=== PATIENT | female | born 1985 | race Caucasian/White ===

== ENCOUNTER 2016-10-25 16:45 | Emergency (ER) | payer OTHER ==
[~2016-10-25] VITALS: Ht 160 cm; Wt 92.0 kg
[~2016-10-25 16:45] MED LIST: ALBUTEROL17 GM IH; ALPRAZOLAM2 MG PO; ARTIFICIAL TEAR1510 BOTH EYES; ATROVENT 00.5 MG/2.5 IH; AUGMENTIN875 MG PO; AVELOX400 MG PO; BACTRIM,SEPT1 TABLET PO; BUTALB-APAP-CA1 EACH PO; CIPRO500 MG PO; CITRATE OF MAG296 ML PO; CLEOCIN300 MG PO; COMBIVENT RESPIM4 GM IH; DULERA 200 MCG/13 GM IH; DUONEB 2.5-0.5 M3 ML AEROSOL; FIORICET,ESG1 TABLET PO; FLAGYL500 MG PO; FLONASE16 G1 BOTH NARES; FLOVENT 22120 INHALA IH; HYDROCODON-ACE1 EAC7 PO; IMITREX25 MG PO; KEFLEX500 MG PO; LEVOFLOXACIN500 MG PO; MOBIC15 MG PO; MONTELUKAST SOD10 MG PO; MUCINEX D ER T1 EACH PO; Motrin PO; NAPROSYN500 MG PO; NICOTINE PATCH1 EAC1 TD; NO HOME MEDS; NOHOMEMEDS; NORCO 5/3251 TABLET PO; ONE DAILY FOR1 EAC1 PO; OXCARBAZEPINE300 MG PO; OXYCODONE HCL5 MG PO; PERCOCET 5/31 TABLET PO; PHENERGAN-CODE120 ML PO; PREDNISONE; PREDNISONE10 MG PO; PREDNISONE20 MG PO; PRENATAL VITAM1 EAC3 PO; PROAIR HFA8.5 GM IH; PROVENTIL HFA6.7 GM IH; PROVENTIL,2.5 MG/3 M IH; PSEUDOEPHEDRINE30 MG PO; PULMICORT0.5 MG/21 IH; Proventil,Ventolin H IH; REGLAN10 MG PO; SAPHRIS10 MG SL; SEROQUEL100 MG PO; SERTRALINE HCL50 MG PO; Symbicort 160-4.5 mc IH; TAMIFLU75 MG PO; TESSALON PERLE100 MG PO; TRAMADOL HCL50 MG PO; TRILEPTAL150 MG PO; Tylenol/Codeine #3 PO; ULTRAM50 MG PO; VENTOLIN HFA18 GM IH; VICODIN 5-3001 EACH PO; VYVANSE30 MG PO; XANAX2 MG PO; ZITHROMAX Z-PA250 MG PO; ZOFRAN4 MG PO; ZOLOFT25 MG PO; ZOLOFT50 MG PO; Zithromax PO; predniSONE PO
[2016-10-25 17:15] LABS: HEMATOCRIT 43.4 % (36.0-46.0); MCH 29.3 PG (29.0-34.0); MCHC 33.6 G/DL (30.0-36.0); MCV 87.1 FL (83-99); MEAN PLAT.VOLUME 9.6 uM^3 (9.5-12.4); PLATELET COUNT 295 K/uL (156-360); RBC DIS.WIDTH-CV 12.3 % (11.8-14.6); RBC DIS.WIDTH-SD 39.3 % (39-53); RED BLOOD COUNT 4.98 M/uL (3.80-5.20); WHITE BLOOD COUNT 9.6 K/uL (4.1-10.2)
[2016-10-25 17:23] LABS: CHLORIDE 107 mEq/L (99-109); POTASSIUM 3.7 mEq/L (3.7-5.4); SODIUM 141 mEq/L (136-147)
[2016-10-25 17:25] LABS: GLUCOSE 98 mg/dL (70-99)
[2016-10-25 17:26] LABS: ANION GAP 11 MEQ/L (2-14)
[2016-10-25 17:35] LABS: GFR ESTIMATE (CALCULATED) > 59 mL/min/; UREA NITROGEN (BUN) 9 mg/dL (9-23)
[2016-10-25 17:44] LABS: D-DIMER ELISA 0.79 mg/L FEU (< 0.57)
[2016-10-25] MEDS ORDERED: METHYLPREDNISOLO4 M1 PO (19:38)
[2016-10-25] MEDS ORDERED: ALBUTEROL2.5 MG/3 M IH (19:38)
[2016-10-25] MEDS ORDERED: ENDOCET 5-3251 EACH PO (19:38)
[2016-10-25] MEDS ORDERED: ALPRAZOLAM2 MG PO (19:39)
[2016-10-25] MEDS ORDERED: ULTRAM50 MG PO (20:29)
[2016-10-25] MEDS ORDERED: NAPROSYN500 MG PO (20:29)
[2016-10-25 20:48] VITALS: BP 103/66
== END 2016-10-25 20:49 | disposition home or self-care (01) ==
LOC: EME 16:45
PROVIDERS: Physician Assistant
DX: R09.1 Pleurisy (principal); R07.9 Chest pain, unspecified; J06.9 Acute upper respiratory infection, unspecified; R79.1 Abnormal coagulation profile; J44.9 Chronic obstructive pulmonary disease, unspecified; J45.909 Unspecified asthma, uncomplicated; F17.200 Nicotine dependence, unspecified, uncomplicated
CPT/HCPCS: 71020; 71275; 80048; 85027; 85379; 93005; 99281; 99285

== ENCOUNTER 2017-02-16 03:15 | Emergency (ER) | payer OTHER ==
[~2017-02-16] VITALS: Ht 165.1 cm; Wt 86.9 kg
[~2017-02-16 03:15] MED LIST changes: +ALBUTEROL2.5 MG/3 M IH; +ENDOCET 5-3251 EACH PO; +METHYLPREDNISOLO4 M1 PO
[2017-02-16 04:44] LABS: HEMATOCRIT 45.7 % (36.0-46.0); MCH 29.2 PG (29.0-34.0); MCHC 33.3 G/DL (30.0-36.0); MCV 87.9 FL (83-99); RBC DIS.WIDTH-CV 12.8 % (11.8-14.6); RBC DIS.WIDTH-SD 41.7 % (39-53)
[2017-02-16 04:54] LABS: CHLORIDE 107 mEq/L (99-109); POTASSIUM 3.3 mEq/L (3.7-5.4); SODIUM 140 mEq/L (136-147)
[2017-02-16 04:56] LABS: GLUCOSE 127 mg/dL (70-99)
[2017-02-16 04:57] LABS: ANION GAP 12 MEQ/L (2-14)
[2017-02-16 04:58] LABS: TOTAL BILIRUBIN 0.2 mg/dL (0.0-1.0)
[2017-02-16 04:59] LABS: SERUM ETHYL ALCOHOL 204 mg/dL
[2017-02-16 05:00] LABS: ALKALINE PHOSPHATASE 70 IU/L (3-129); GFR ESTIMATE (CALCULATED) > 59 mL/min/
[2017-02-16 05:01] LABS: UREA NITROGEN (BUN) 6 mg/dL (9-23)
[2017-02-16 05:22] LABS: HEMATOLOGY COMMENT 1 SN; PLAT.SUFFICIENCY ADEQUATE; PLATELET COUNT UNABLE TO REPORT K/uL (156-360)
[2017-02-16 05:30] VITALS: BP 114/79
== END 2017-02-16 06:00 | disposition home or self-care (01) ==
LOC: EME 03:15
PROVIDERS: Emergency Medicine
DX: F10.129 Alcohol abuse with intoxication, unspecified (principal); Y90.7 Blood alcohol level of 200-239 mg/100 ml; J44.9 Chronic obstructive pulmonary disease, unspecified; F17.200 Nicotine dependence, unspecified, uncomplicated; Z88.0 Allergy status to penicillin
CPT/HCPCS: 80053; 81003; 85027; 99281; 99285; G0480; J2405

== ENCOUNTER 2017-03-01 13:26 | Inpatient (IN) | payer OTHER ==
[~2017-03-01] VITALS: Ht 160 cm; Wt 86.3 kg
[2017-03-01 14:17] LABS: HEMATOCRIT 43.9 % (36.0-46.0); MCH 29.8 PG (29.0-34.0); MCHC 33.9 G/DL (30.0-36.0); MCV 87.8 FL (83-99); RBC DIS.WIDTH-SD 41.6 % (39-53); WHITE BLOOD COUNT 10.7 K/uL (4.1-10.2)
[2017-03-01 14:29] LABS: D-DIMER ELISA 1.55 mg/L FEU (< 0.57)
[2017-03-01 14:32] LABS: CHLORIDE 109 mEq/L (99-109); POTASSIUM 3.9 mEq/L (3.7-5.4); SODIUM 139 mEq/L (136-147)
[2017-03-01 14:34] LABS: GLUCOSE 87 mg/dL (70-99)
[2017-03-01 14:35] LABS: ANION GAP 11 MEQ/L (2-14)
[2017-03-01 14:38] LABS: GFR ESTIMATE (CALCULATED) > 59 mL/min/; UREA NITROGEN (BUN) 5 mg/dL (9-23)
[2017-03-01 14:46] LABS: QUANTITATIVE HCG < 4.0 MIU/ML
[2017-03-01 16:51] LABS: TROP-I INTERPRETATION NEGATIVE; TROPONIN-I < 0.01 ng/mL (0.0-0.30)
[2017-03-01 17:27] LABS: PROTHROMBIN TIME 10.3 (9.2-11.2); PTT 26.9 (25-32)
[2017-03-01 17:57] LABS: MEAN PLAT.VOLUME 10.2 uM^3 (9.5-12.4); PLAT.SUFFICIENCY ADEQUATE; PLATELET COUNT 213 K/uL (156-360)
[2017-03-01 19:50] VITALS: BP 120/70
[2017-03-02 00:23] VITALS: BP 133/67
[2017-03-02 01:03] LABS: PROTHROMBIN TIME 10.4 (9.2-11.2); TROP-I INTERPRETATION NEGATIVE; TROPONIN-I < 0.01 ng/mL (0.0-0.30)
[2017-03-02 01:21] LABS: PTT 75.1 (25-32)
[2017-03-02 04:17] VITALS: BP 112/69
[2017-03-02 06:46] LABS: HEMATOCRIT 37.4 % (36.0-46.0); MCH 30.6 PG (29.0-34.0); MCHC 33.4 G/DL (30.0-36.0); MCV 91.7 FL (83-99); MEAN PLAT.VOLUME 10.9 uM^3 (9.5-12.4); PLATELET COUNT 165 K/uL (156-360); RBC DIS.WIDTH-CV 13.2 % (11.8-14.6); RBC DIS.WIDTH-SD 44.5 % (39-53); RED BLOOD COUNT 4.08 M/uL (3.80-5.20); WHITE BLOOD COUNT 8.1 K/uL (4.1-10.2)
[2017-03-02 07:11] LABS: ALKALINE PHOSPHATASE 54 IU/L (3-129); ANION GAP 4 MEQ/L (2-14); CHLORIDE 111 MEQ/L (99-109); GFR ESTIMATE (CALCULATED) > 59 mL/min/; GLUCOSE 87 mg/dL (70-99); POTASSIUM 3.8 MEQ/L (3.7-5.4); SAMPLE HEMOLYSIS CHECK 0; SAMPLE ICTERIC CHECK 0; SAMPLE LIPEMIA CHECK 0; SODIUM 139 MEQ/L (136-147); TOTAL BILIRUBIN 0.3 MG/DL (0.0-1.0); UREA NITROGEN (BUN) 6 mg/dL (9-23)
[2017-03-02 07:26] LABS: TROP-I INTERPRETATION NEGATIVE; TROPONIN-I < 0.01 ng/mL (0.0-0.30)
[2017-03-02 08:17] VITALS: BP 105/60
[2017-03-02 12:11] VITALS: BP 103/53
[2017-03-02 14:37] LABS: ADD MIUA? YES; BILIRUBIN NEGATIVE; BLOOD MODERATE; COLOR STRAW ((YELLOW)); GLUCOSE (STRIP) NEGATIVE; KETONES NEGATIVE; LEUKOCYTES SMALL; NITRITE NEGATIVE; PROTEIN (STRIP) NEGATIVE; SPECIFIC GRAVITY 1.008 (1.000-1.030); UROBILINOGEN 0.2 MG/DL (0.2-1.0)
[2017-03-02 14:41] VITALS: BP 123/73
[2017-03-02 14:41] LABS: BACTERIA RARE /HPF; EPITHELIAL CELLS 1+ /HPF; MUCUS TRACE /LPF; RED BLOOD CELLS 0-5 /HPF (0-5); UCUL ADDED? NO; WHITE BLOOD CELLS 0-5 /HPF (0-5)
[2017-03-02 15:05] LABS: AMPHETAMINES QUANT VALUE 0 NG/ML; BARBITUATES QUANT VALUE 0 NG/ML; BENZODIAZEPINES QUANT VALUE 0 NG/ML; BENZODIAZEPINES, URINE SCREEN Negative (200 ng/mL); MARIJUANA QUANT VALUE 0 NG/ML; PHENCYCLIDINE QUANT VALUE 0 NG/ML
[2017-03-02 20:06] VITALS: BP 108/55
[2017-03-03] VITALS: BP 108/59
[2017-03-03 04:31] VITALS: BP 124/62
[2017-03-03 09:49] VITALS: BP 115/71
[2017-03-03 11:27] VITALS: BP 108/65
[2017-03-03] MEDS ORDERED: XARELTO15 MG PO (11:32)
[2017-03-03] MEDS ORDERED: XARELTO20 MG PO (11:32)
[2017-03-06 15:33] LABS: DRVVT Mixing Study Interp Not Indicated (()); PROTEIN C FUNCTIONAL ACTIVITY+ 108 % (70-180); PTT-LA 40 sec (<=40); Protein S, Free 86 % normal (50-147); Thrombosis Consult Level Limited (()); dRVVT Screen 39 sec (<=45)
[2017-03-06 16:55] LABS: ANTITHROMBIN III ACTIVITY+ 93 % activi (80-120)
== END 2017-03-03 12:24 | disposition home or self-care (01) | DRG 176 ==
LOC: EME 13:26 → EDOF 17:03 → 5SOUTH 19:14
PROVIDERS: Hospitalist; Internal Medicine; Nurse Practitioner Family
DX: I26.99 Other pulmonary embolism without acute cor pulmonale (principal); R09.02 Hypoxemia; G89.29 Other chronic pain; J45.909 Unspecified asthma, uncomplicated; F17.210 Nicotine dependence, cigarettes, uncomplicated; Z68.33 Body mass index [BMI] 33.0-33.9, adult; Z79.899 Other long term (current) drug therapy
CPT/HCPCS: 71020; 71275; 80048; 80053; 80306 90; 81003; 81240 90; 83090 90; 83880; 84484; 84702; 85027; 85240 90; 85300 90; 85303 90; 85305 90; 85306 90; 85307 90; 85379; 85610; 85613 90; 85730; 85730 90; 86146 90; 86147 90; 93005; 93970; 94640; 94640 76; 99281; 99285; J1170; J1885; J2270; J7030; S0028

== ENCOUNTER 2017-03-15 17:21 | Emergency (ER) | payer OTHER ==
[~2017-03-15] VITALS: Ht 160 cm; Wt 86.0 kg
[~2017-03-15 17:21] MED LIST changes: +XARELTO15 MG PO; +XARELTO20 MG PO
[2017-03-15 19:08] LABS: EOSINOPHIL (%) 3.8 % (0-5); EOSINOPHIL COUNT 0.3 K/uL (0-0.3); HEMATOCRIT 43.4 % (36.0-46.0); IMMATURE GRANULOCYTE (%) 0.6 % (0.0-0.7); INSTRUMENT ABS NEUTROPHIL CT 4.5 K/uL; LYMPHOCYTE COUNT 1.6 K/uL (1.0-2.8); MCH 28.9 PG (29.0-34.0); MCHC 32.9 G/DL (30.0-36.0); MEAN PLAT.VOLUME 9.8 uM^3 (9.5-12.4); MONOCYTE (%) 10.3 % (3-12); MONOCYTE COUNT 0.7 K/uL (0-0.8); NEUTROPHIL (%) 62.1 % (45-76); NEUTROPHIL COUNT 4.5 K/uL (1.8-6.4); RBC DIS.WIDTH-CV 12.8 % (11.8-14.6); RBC DIS.WIDTH-SD 41.1 % (39-53); WHITE BLOOD COUNT 7.2 K/uL (4.1-10.2)
[2017-03-15 19:09] LABS: MCV 87.7 FL (83-99); PLATELET COUNT 314 K/uL (156-360); RED BLOOD COUNT 4.95 M/uL (3.80-5.20)
[2017-03-15 19:12] LABS: INTER. NORMALIZED RATIO 2.1; PROTHROMBIN TIME 23.5 SEC (10.2-12.9)
[2017-03-15 19:21] LABS: PTT 37.1 SEC (25-37)
[2017-03-15 19:23] LABS: CHLORIDE 108 mEq/L (99-109); POTASSIUM 4.1 mEq/L (3.7-5.4); SODIUM 139 mEq/L (136-147)
[2017-03-15 19:24] LABS: GLUCOSE 97 mg/dL (70-99)
[2017-03-15 19:26] LABS: ANION GAP 8 MEQ/L (2-14)
[2017-03-15 19:28] LABS: GFR ESTIMATE (CALCULATED) > 59 mL/min/
[2017-03-15 19:29] LABS: UREA NITROGEN (BUN) 8 mg/dL (9-23)
[2017-03-15 19:30] LABS: TROP-I INTERPRETATION NEGATIVE; TROPONIN-I < 0.01 ng/mL (0.0-0.30)
[2017-03-15 21:55] VITALS: BP 101/55
== END 2017-03-15 21:59 | disposition home or self-care (01) ==
LOC: EME 17:21
PROVIDERS: Emergency Medicine
DX: J44.9 Chronic obstructive pulmonary disease, unspecified (principal); I26.99 Other pulmonary embolism without acute cor pulmonale; R42 Dizziness and giddiness; Z91.81 History of falling; F41.9 Anxiety disorder, unspecified; F17.200 Nicotine dependence, unspecified, uncomplicated; Z88.0 Allergy status to penicillin
CPT/HCPCS: 71020; 71275; 80048; 84484; 85025; 85610; 85730; 94640; 99281; 99285; J1100; J1885; J2405; J3475

== ENCOUNTER 2017-07-04 09:53 | Day surgery (SDC) | payer OTHER ==
[~2017-07-04] VITALS: Ht 160 cm; Wt 86.0 kg
[~2017-07-04 09:53] MED LIST changes: +BREO ELLIPTA I1 EACH IH
[2017-07-04 10:34] LABS: EOSINOPHIL COUNT 0.4 K/uL (0-0.3); HEMATOCRIT 42.4 % (36.0-46.0); IMMATURE GRANULOCYTE (%) 0.4 % (0.0-0.7); INSTRUMENT ABS NEUTROPHIL CT 4.6 K/uL; LYMPHOCYTE COUNT 1.4 K/uL (1.0-2.8); MCH 30.2 PG (29.0-34.0); MCHC 33.7 G/DL (30.0-36.0); MCV 89.6 FL (83-99); MEAN PLAT.VOLUME 10.1 uM^3 (9.5-12.4); MONOCYTE (%) 9.6 % (3-12); MONOCYTE COUNT 0.7 K/uL (0-0.8); NEUTROPHIL (%) 64.8 % (45-76); NEUTROPHIL COUNT 4.6 K/uL (1.8-6.4); PLATELET COUNT 225 K/uL (156-360); RBC DIS.WIDTH-CV 12.9 % (11.8-14.6); RBC DIS.WIDTH-SD 42.4 % (39-53); RED BLOOD COUNT 4.73 M/uL (3.80-5.20); WHITE BLOOD COUNT 7.1 K/uL (4.1-10.2)
[2017-07-04 10:52] VITALS: BP 116/61
[2017-07-04 11:01] LABS: PROTHROMBIN TIME 11.4 SEC (10.2-12.9)
[2017-07-04 11:03] LABS: PTT 25.2 SEC (25-37)
[2017-07-04] MEDS ORDERED: MOTRIN800 MG PO (13:07)
[2017-07-04 15:12] VITALS: BP 103/53
[2017-07-04 16:16] VITALS: BP 99/58
== END 2017-07-04 16:38 | disposition home or self-care (01) ==
LOC: SDC 09:53
PROVIDERS: Obstetrics & Gynecology
DX: D06.9 Carcinoma in situ of cervix, unspecified (principal); N93.9 Abnormal uterine and vaginal bleeding, unspecified; N92.0 Excessive and frequent menstruation with regular cycle; F41.1 Generalized anxiety disorder; J44.9 Chronic obstructive pulmonary disease, unspecified; J45.41 Moderate persistent asthma with (acute) exacerbation; E66.3 Overweight; Z68.36 Body mass index [BMI] 36.0-36.9, adult; Z86.711 Personal history of pulmonary embolism; Z79.01 Long term (current) use of anticoagulants; F17.210 Nicotine dependence, cigarettes, uncomplicated
CPT/HCPCS: 84702; 85025; 85610; 85730; 86850; 86900; 86901; 88305; 88342 TC; 93005; 94640; J1170; J1644; J1885; J2250; J2405; J3010

== ENCOUNTER 2017-07-10 17:13 | Emergency (ER) | payer OTHER ==
[~2017-07-10] VITALS: Ht 160 cm; Wt 90.9 kg
[~2017-07-10 17:13] MED LIST changes: +MOTRIN800 MG PO
[2017-07-10 17:42] LABS: EOSINOPHIL (%) 0 % (0-5); HEMATOCRIT 46.4 % (36.0-46.0); IMMATURE GRANULOCYTE (%) 0.4 % (0.0-0.7); INSTRUMENT ABS NEUTROPHIL CT 9.6 K/uL; LYMPHOCYTE COUNT 0.5 K/uL (1.0-2.8); MCH 29.4 PG (29.0-34.0); MCHC 33.4 G/DL (30.0-36.0); MEAN PLAT.VOLUME 9.9 uM^3 (9.5-12.4); MONOCYTE (%) 1.2 % (3-12); MONOCYTE COUNT 0.1 K/uL (0-0.8); NEUTROPHIL (%) 93.2 % (45-76); NEUTROPHIL COUNT 9.6 K/uL (1.8-6.4); PLATELET COUNT 277 K/uL (156-360); RBC DIS.WIDTH-CV 13.2 % (11.8-14.6); RBC DIS.WIDTH-SD 42.5 % (39-53); RED BLOOD COUNT 5.27 M/uL (3.80-5.20); WHITE BLOOD COUNT 10.3 K/uL (4.1-10.2)
[2017-07-10 17:49] LABS: PROTHROMBIN TIME 11.5 SEC (10.2-12.9)
[2017-07-10 17:51] LABS: CHLORIDE 108 mEq/L (99-109); POTASSIUM 3.5 mEq/L (3.7-5.4); PTT 24.5 SEC (25-37); SODIUM 138 mEq/L (136-147)
[2017-07-10 17:53] LABS: GLUCOSE 168 mg/dL (70-99)
[2017-07-10 17:55] LABS: ANION GAP 14 MEQ/L (2-14)
[2017-07-10 17:57] LABS: GFR ESTIMATE (CALCULATED) > 59 mL/min/
[2017-07-10 17:58] LABS: UREA NITROGEN (BUN) 11 mg/dL (9-23)
[2017-07-10 18:10] LABS: QUANTITATIVE HCG < 4.0 MIU/ML
[2017-07-10 20:21] VITALS: BP 121/68
== END 2017-07-10 20:25 | disposition home or self-care (01) ==
LOC: EME 17:13
PROVIDERS: Physician Assistant
DX: J45.901 Unspecified asthma with (acute) exacerbation (principal); J44.9 Chronic obstructive pulmonary disease, unspecified; Z98.890 Other specified postprocedural states; I27.82 Chronic pulmonary embolism; F17.200 Nicotine dependence, unspecified, uncomplicated; Z88.0 Allergy status to penicillin
CPT/HCPCS: 71275; 80048; 81003; 84702; 85025; 85610; 85730; 94640; 99281; 99285; J2060; J2930; J7030

== ENCOUNTER 2017-07-13 18:03 | Emergency (ER) | payer OTHER ==
[~2017-07-13] VITALS: Ht 172.7 cm; Wt 97.0 kg
[2017-07-13 18:22] VITALS: BP 106/78
== END 2017-07-13 18:44 | disposition left against medical advice (07) ==
LOC: EME 18:03
DX: R06.02 Shortness of breath (principal); Z53.21 Procedure and treatment not carried out due to patient leaving prior to being seen by health care provider

== ENCOUNTER 2017-07-20 21:23 | Emergency (ER) | payer OTHER ==
[~2017-07-20] VITALS: Ht 160 cm; Wt 94.8 kg
[2017-07-20 23:01] LABS: MCH 30.2 PG (29.0-34.0); MCHC 34.4 G/DL (30.0-36.0); MCV 87.8 FL (83-99); MEAN PLAT.VOLUME 9.6 uM^3 (9.5-12.4); PLATELET COUNT 253 K/uL (156-360); RBC DIS.WIDTH-CV 12.6 % (11.8-14.6); RBC DIS.WIDTH-SD 40.2 % (39-53); RED BLOOD COUNT 4.67 M/uL (3.80-5.20); WHITE BLOOD COUNT 11.8 K/uL (4.1-10.2)
[2017-07-20 23:15] LABS: CHLORIDE 106 mEq/L (99-109); POTASSIUM 3.5 mEq/L (3.7-5.4); SODIUM 138 mEq/L (136-147)
[2017-07-20 23:17] LABS: GLUCOSE 122 mg/dL (70-99)
[2017-07-20 23:18] LABS: ANION GAP 8 MEQ/L (2-14)
[2017-07-20 23:19] LABS: TOTAL BILIRUBIN 0.2 mg/dL (0.0-1.0)
[2017-07-20 23:20] LABS: ALKALINE PHOSPHATASE 62 IU/L (3-129)
[2017-07-20 23:21] LABS: GFR ESTIMATE (CALCULATED) > 59 mL/min/
[2017-07-20 23:22] LABS: UREA NITROGEN (BUN) 7 mg/dL (9-23)
[2017-07-20 23:35] LABS: QUANTITATIVE HCG < 4.0 MIU/ML
[2017-07-21] MEDS ORDERED: HYCODAN SYRUP480 ML PO (01:08)
[2017-07-21 01:32] VITALS: BP 121/86
== END 2017-07-21 01:34 | disposition home or self-care (01) ==
LOC: EME 21:23
PROVIDERS: Physician Assistant
DX: J06.9 Acute upper respiratory infection, unspecified (principal); J44.0 Chronic obstructive pulmonary disease with (acute) lower respiratory infection; J20.9 Acute bronchitis, unspecified; R07.81 Pleurodynia; Z86.711 Personal history of pulmonary embolism; Z88.0 Allergy status to penicillin; F17.200 Nicotine dependence, unspecified, uncomplicated
CPT/HCPCS: 71275; 80053; 84702; 85027; 94640; 99281; 99285; J2270; J2405; J7030

== ENCOUNTER 2017-08-19 15:06 | Emergency (ER) | payer OTHER ==
[~2017-08-19] VITALS: Ht 160 cm; Wt 93.4 kg
[~2017-08-19 15:06] MED LIST changes: +HYCODAN SYRUP480 ML PO
[2017-08-19 16:28] LABS: HEMATOCRIT 43.7 % (36.0-46.0); MCH 29.9 PG (29.0-34.0); MCHC 34.3 G/DL (30.0-36.0); MCV 87.2 FL (83-99); PLATELET COUNT 259 K/uL (156-360); RBC DIS.WIDTH-CV 13.1 % (11.8-14.6); RBC DIS.WIDTH-SD 41.7 % (39-53); RED BLOOD COUNT 5.01 M/uL (3.80-5.20); WHITE BLOOD COUNT 9.9 K/uL (4.1-10.2)
[2017-08-19 16:46] LABS: CHLORIDE 108 mEq/L (99-109); POTASSIUM 3.7 mEq/L (3.7-5.4); SODIUM 138 mEq/L (136-147)
[2017-08-19 16:48] LABS: GLUCOSE 113 mg/dL (70-99)
[2017-08-19 16:52] LABS: CREATININE 0.6 mg/dL (0.6-1.3); GFR ESTIMATE (CALCULATED) > 59 mL/min/
[2017-08-19 16:53] LABS: UREA NITROGEN (BUN) 9 mg/dL (9-23)
[2017-08-19] MEDS ORDERED: COMPAZINE10 MG PO (20:09)
[2017-08-19 20:31] VITALS: BP 113/76
== END 2017-08-19 20:31 | disposition home or self-care (01) ==
LOC: EME 15:06
DX: G43.909 Migraine, unspecified, not intractable, without status migrainosus (principal); E86.0 Dehydration; R19.7 Diarrhea, unspecified; J06.9 Acute upper respiratory infection, unspecified; S06.0X0A Concussion without loss of consciousness, initial encounter; W01.198A Fall on same level from slipping, tripping and stumbling with subsequent striking against other object, initial encounter; Y92.002 Bathroom of unspecified non-institutional (private) residence as the place of occurrence of the external cause; J44.9 Chronic obstructive pulmonary disease, unspecified; F41.9 Anxiety disorder, unspecified; Z86.711 Personal history of pulmonary embolism; Z88.0 Allergy status to penicillin; F17.200 Nicotine dependence, unspecified, uncomplicated
CPT/HCPCS: 71046; 80048; 80048 91; 85027; 99281; 99284; J0780; J2270; J7040

== ENCOUNTER 2017-09-27 08:49 | Emergency (ER) | payer OTHER ==
[~2017-09-27] VITALS: Ht 160 cm; Wt 95.7 kg
[~2017-09-27 08:49] MED LIST changes: +COMPAZINE10 MG PO
[2017-09-27 08:51] VITALS: BP 120/78
[2017-09-27 09:40] LABS: HEMATOCRIT 42.4 % (36.0-46.0); HEMOGLOBIN 14.5 G/DL (11.9-15.5); MCHC 34.2 G/DL (30.0-36.0); MCV 87.6 FL (83-99); PLATELET COUNT 252 K/uL (156-360); RBC DIS.WIDTH-CV 12.8 % (11.8-14.6); RBC DIS.WIDTH-SD 40.8 % (39-53); RED BLOOD COUNT 4.84 M/uL (3.80-5.20); WHITE BLOOD COUNT 6.4 K/uL (4.1-10.2)
[2017-09-27 10:22] LABS: ALBUMIN 3.8 G/DL (3.2-4.8); ALKALINE PHOSPHATASE 67 IU/L (3-129); ALT (GPT) 20 IU/L (3-49); AST (GOT) 20 IU/L (2-34); CHLORIDE 105 MEQ/L (99-109); CREATININE 0.6 MG/DL (0.6-1.3); GFR ESTIMATE (CALCULATED) > 59 mL/min/; GLUCOSE 93 mg/dL (70-99); POTASSIUM 3.9 MEQ/L (3.7-5.4); SODIUM 136 MEQ/L (136-147); TOTAL BILIRUBIN 0.7 MG/DL (0.0-1.0); TOTAL PROTEIN 6.5 G/DL (6.4-8.3); UREA NITROGEN (BUN) 5 mg/dL (9-23)
[2017-09-27 10:28] LABS: APPEARANCE SL.HAZY ((CLEAR)); BILIRUBIN NEGATIVE; BLOOD SMALL; COLOR YELLOW ((YELLOW)); GLUCOSE (STRIP) NEGATIVE; KETONES NEGATIVE; LEUKOCYTES TRACE; NITRITE NEGATIVE; PROTEIN (STRIP) NEGATIVE; UROBILINOGEN 0.2 MG/DL (0.2-1.0)
[2017-09-27 10:39] LABS: BACTERIA NONE SEEN /HPF; CALCIUM OXALATE CRYSTALS 1+ /HPF; EPITHELIAL CELLS 2+ /HPF; MUCUS TRACE /LPF; RED BLOOD CELLS 0-5 /HPF (0-5); UCUL ADDED? NO; WHITE BLOOD CELLS 0-5 /HPF (0-5)
[2017-09-27 10:43] LABS: QUANTITATIVE HCG < 4.0 MIU/ML
[2017-09-27 11:19] LABS: LIPASE 14 U/L (1.0-51.0)
== END 2017-09-27 16:08 | disposition left against medical advice (07) ==
LOC: EME 08:49
DX: R10.11 Right upper quadrant pain (principal); Z86.711 Personal history of pulmonary embolism; J44.9 Chronic obstructive pulmonary disease, unspecified; F17.200 Nicotine dependence, unspecified, uncomplicated; F41.9 Anxiety disorder, unspecified; Z88.0 Allergy status to penicillin
CPT/HCPCS: 71046; 71275; 76705; 80053; 81003; 83690; 84702; 85027; 85379; J1885; J2405; J3010; J7030